=== PATIENT | female | born 1995 | race Caucasian/White ===

== ENCOUNTER 2018-07-06 06:05 | Day surgery (SDC) | payer OTHER ==
[2018-07-05 09:01] LABS: HEMATOCRIT 35.5 % (36.0-48.0); HEMOGLOBIN 12.1 g/dL (12-16); MCHC 34.1 g/dL (31.0-37.0); MCV 88.1 fL (80.0-100.0); MEAN PLATELET VOLUME 9.8 fL (7.4-10.4); RBC 4.03 10x6/uL (4.00-5.40); RDW 12.7 % (11.5-14.5); WBC 9.5 10x3/uL (4.8-10.8)
[~2018-07-06] VITALS: Ht 160 cm; Wt 71.2 kg
--- NOTE | ~2018-07-06 | OP ---
PATIENT NAME: EDWARD PRUITT MEDICAL RECORD: [id number] :89 LOCATION:D.OPS ADMISSION DATE: SURGEON: LAMONT SANDERS MD DATE OF OPERATION: 07/06/2018 PREOPERATIVE DIAGNOSIS: Symptomatic pilonidal cyst. POSTOPERATIVE DIAGNOSIS: Symptomatic pilonidal cyst. PROCEDURE: Pilonidal cystectomy. SURGEON: Lamont Sanders MD CLINICAL TECHNICIAN: None. BLOOD LOSS: Minimal. ANESTHESIA: General. I saw the patient in the holding area. The entire examination was performed in the presence of a female nurse. I marked the area where the patient was symptomatic. She has had a prior drainage of a pilonidal abscess. OPERATIVE COURSE: The patient was conveyed to the operating room electively on 07/06/2018. General anesthesia was induced by the anesthesia staff. The patient was positioned in the prone jackknife position with the buttocks taped laterally. The buttocks and perineum were sterilely prepped and draped. I inserted an Angiocath through a central pore. I injected a combination of hydrogen peroxide and methylene blue through the central pore. Through the use of double curvilinear incisions, I excised the skin and subcutaneous tissue down to the coccyx and sacrum. The coccyx was pointed so that it protruded posteriorly a little bit and this was going to cause an area of point tenderness and perhaps a pressure injury. For this reason, I took a rongeur and I removed a small portion of the tip of the coccyx. I ensured that all the blue material was excised. Subcutaneous flaps were created sharply. The deep adipose tissue was closed with interrupted #1 Vicryls. The subcutaneous tissue and the skin was closed with interrupted horizontal mattress 2-0 Vicryls. A sterile dressing was applied. The patient was then extubated and conveyed to post-anesthesia care unit where she was in stable condition. TRANSINT:[id number] Voice Confirmation ID: [id number] DOCUMENT ID: [id number] LAMONT SANDERS MD at 1055 CC: [id number] DICTATION DATE: 07/06/18 1258 FUNCTIONAL MENTAL DISABILITY TEACHER: 07/06/18 1318 [facility] 07/06/18 [place] [address]
[~2018-07-06 06:05] MED LIST: ESTARYLLA
[2018-07-06 06:47] VITALS: BP 122/74; Ht 160 cm; Wt 71.2 kg
[2018-07-06 07:38] LABS: HCG URINE NEGATIVE (NEGATIVE)
== END 2018-07-06 10:30 | disposition home or self-care (01) ==
LOC: D.OPS 06:05 → D.PAN 08:00 → D.OPS 10:30
PROVIDERS: Anesthesiology; Surgery
DX: L05.91 Pilonidal cyst without abscess (principal); Z01.812 Encounter for preprocedural laboratory examination